=== PATIENT | female | born 1980 | race Caucasian/White ===

== ENCOUNTER → 2016-08-29 11:25 | Emergency (ER) | payer OTHER ==
[~2016-08-29 11:25] MED LIST: HYDROmorphone* 1 MG/ML 1 ML SYR IV ONE; HYDROmorphone* 1 MG/ML 1 ML SYR IV SLOW PU ONE; Iohexol 300* (CONTRAST) 10 ML SDV IV ONE; Metoclopramide IV* 5 MG/ML 2 ML VIAL IV ONE; diPHENhydraMINE IV* 50 MG/ML 1 ml VIAL (BENADRYL) IV ONE
[2016-08-29 13:26] LABS: Hematocrit 43 % (35-47); Hemoglobin 14.2 g/dl (12.0-16.0); Mean Corpuscular HGB Conc 33 g/dl (31-36); Mean Corpuscular Hemoglobin 29 pg (27-31); Mean Corpuscular Volume 86 fL (80-97); Mean Platelet Volume 8 um3 (7.4-10.4); Red Blood Count 4.97 10^6/ul (4.0-5.4); Red Cell Distribution Width 14 % (10.5-15); White Blood Count 6.4 10^3/ul (3.5-10.8)
[2016-08-29] MEDS: NS 0.9% 1000 ML* 3,000 ML IV ONE ×3 (13:26→16:15)
[2016-08-29 13:30] LABS: Urine Bilirubin Negative (Negative); Urine Glucose Negative (Negative); Urine Nitrite Negative (Negative)
[2016-08-29 13:46] LABS: ALT 25 U/L (7-52); Albumin 4.5 g/dL (3.2-5.2); Alkaline Phosphatase 68 U/L (34-104); Amylase 38 U/L (29-103); BUN/Creatinine Ratio 15.9 (8-20); Blood Urea Nitrogen 11 mg/dL (6-24); C Reactive Protein 6.45 mg/L (< 5.00); CO2 Carbon Dioxide 26 mmol/L (22-32); Calcium 9.6 mg/dL (8.6-10.3); Chloride 102 mmol/L (101-111); EGFR African American 123.1 (>60); EGFR Non-African American 95.7 (>60); Globulin 3.6 g/dL (2-4); Glucose 83 mg/dL (70-100); Lipase 14 U/L (11.0-82.0); Sodium 134 mmol/L (133-145); Total Protein 8.1 g/dL (6.4-8.9)
--- NOTE | 2016-08-29 15:57 | RAD ---
Indication: Right-sided abdominal pain. Contrast: Administered 149.9 ml of OMNIPAQUE 300 mgi/ml CT of the abdomen and pelvis was performed after oral and IV contrast administration. Coronal and sagittal reconstructed images were obtained. The lung bases demonstrate no pleural fluid, nodules or masses. Heart is of normal size without evidence of pericardial effusion. The patient apparently has bilateral breast implants and clinical correlation is suggested. The liver is normal in size. No focal lesions or intrahepatic ductal dilatation is noted. The gallbladder demonstrates no calcified gallstones. No pericholecystic fluid or wall thickening is identified. The spleen is normal in size. The pancreas demonstrates no mass or pancreatic duct dilatation. The common duct is not dilated. No adrenal lesions are noted. The kidneys demonstrate symmetric nephrograms without focal lesions. No retroperitoneal lymphadenopathy is noted. No dilated loops of bowel are noted. CT of the pelvis demonstrates fluid in the right colon. This is suggestive of colitis or gastroenteritis. Surgical clips are noted adjacent to the cecum which May BE due to prior appendectomy. No free fluid is identified. Intrauterine device is in place. No hernias are noted. IMPRESSION: FLUID IN THE RIGHT COLON SUGGESTIVE OF COLITIS OR GASTROENTERITIS. THE PATIENT STATUS POST APPENDECTOMY. IUD DEVICE IS IN PLACE. NO OTHER MASSES OR FLUID COLLECTIONS ARE NOTED.
[2016-08-29 17:24] VITALS: BP 133/80
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
== END | disposition home or self-care (01) ==
LOC: ED 11:25
DX: K52.9 Noninfective gastroenteritis and colitis, unspecified (principal); R10.84 Generalized abdominal pain; R11.2 Nausea with vomiting, unspecified; R19.7 Diarrhea, unspecified
CPT/HCPCS: 36415; 74177; 80053; 81003; 82150; 83605; 83690; 85025; 86140; 96374; 96375; 99283; J1170; J1200; Q9967

== ENCOUNTER 2017-05-14 16:16 | Emergency (ER) | payer OTHER ==
--- OUTSIDE RECORDS SUMMARY | 2017-05-14 17:10 | XMS REPORT ---
:1980 External Reference #:[id number] Author Organization [facility] Address [address] [place] [address] Phone [phone] Care Team Providers Name Role Phone Sonam Kaufman M.D. Primary Care Physician Unavailable Payers Type Date Identification Numbers Payment Provider Subscriber Health Maintenance Policy Number: [employer] Organization (HMO) [id number] PayID: [id number] [address] [place] [address] Problems Description No Information Family History Date Family Member(s) Problem(s) Comments General Hearing Loss General Heart Attack General Migraine General Thyroid Disease General Vertigo Father Hearing Loss Father Heart Attack Mother Migraine Mother Thyroid Disease Mother Vertigo Social History Type Date Description Comments Occupation [employer] Cigarette Use Former Occasional Smoker Quit 3 years ago. Cigars Never Smoked Cigars Pipe Never Smoked A Pipe Smokeless Tobacco Never Used Smokeless Tobacco ETOH Use Currently rarely consumes alcohol Smoking Patient is a former smoker Allergies, Adverse Reactions, Alerts Date Description Reaction Status Severity Comments 05/08/2017 NKDA active Medications Medication Date Status Form Strength Qnty SIG Indications Ordering Provider Azithromycin Active Tablets 250mg Kaufman, 000 Sonam Martines Venlafaxine HCL ER Active Caps ER 37.5mg Kaufman, 000 24HR Sonam Martines Venlafaxine HCL ER Active Caps ER 75mg Kaufman, 000 24HR Sonam Martines Zenzedi Active Tablets 20mg Dauria 000 N.P., Mandy Dextroamphetamine Active Caps ER 15mg Kaufman, Sulfate ER 000 24HR Sonam Martines SSD Active Cream 1% Kaufman, 000 Sonam M.D. Multiple Vitamins Active Tablets daily Unknown 000 Merana IUD Active Unknown 000 Vital Signs Date Vital Result Comment 05/08/2017 BP Systolic 139 mmHg BP Diastolic 92 mmHg Heart Rate 88 /min Respiratory Rate 18 /min Weight 245.00 lb Weight in kg's 111.132 Height 65 inches 5'5" Height in cm's 165.1 cm BMI (Body Mass Index) 40.8 kg/m2 Results Description No Information Procedures Date CPT Code Description Status 05/08/2017 25979 Tympanometry Completed 05/08/2017 18666 Comprehensive Audiogram Completed Encounters Type Date Location Provider CPT E/M Dx Office Visit 05/08/2017 [place],After 04/17/07 Stephan Antoine 53412 H83.3x3 2:30p Conrad Courtney H93.243 Plan of Care 05/08/2017 - Stephan Courtney M.D.H83.3x3 Noise effects on inner ear, bilateralComments:The patient presents today because the she has been noticing some hearing loss and tinnitus. 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 What I think is happening is the noise is leading to temporary threshold shifting. I explained what this is and how it works. The ear reflexes that protect the ears from noise aretriggered and this leads to her symptoms. Not hearing somebody when they are behind you is a normalphenomenon. You can't localize this and it is exacerbated by the arora noise.My recommendation is to wear ear plugs or get musician plugs made if needed. We reviewed all of this.H93.243 Temporary auditory threshold shift, bilateral
[2017-05-14] MEDS ORDERED: Ondansetron ODT TAB* 4 MG PO ONE (17:25)
[2017-05-14] MEDS ORDERED: oxyCODONE/Acetamin 5/325 MG* TAB PO ONE (17:25)
[2017-05-14] MEDS ORDERED: Clindamycin CAP* 150 MG PO ONE (17:26)
[2017-05-14 17:59] LABS: ABS Basophils 0 10^3/ul (0-0.2); ABS Eosinophils 0.1 10^3/ul (0-0.6); ABS Lymphocytes 0.5 10^3/ul (1.0-4.8); ABS Monocytes 0.2 10^3/ul (0-0.8); ABS Neutrophils 4.4 10^3/ul (1.5-7.7); ABS Nucleated RBC 0 10^3/ul; Hematocrit 39 % (35-47); Hemoglobin 13.3 g/dl (12.0-16.0); Lymphocyte % 9.7 % (25-47); Mean Corpuscular HGB Conc 34 g/dl (31-36); Mean Corpuscular Hemoglobin 30 pg (27-31); Mean Corpuscular Volume 88 fL (80-97); Mean Platelet Volume 8 um3 (7.4-10.4); Nucleated Red Blood Cells % 0; Platelet Count 210 10^3/ul (150-450); Red Blood Count 4.48 10^6/ul (4.0-5.4); Red Cell Distribution Width 14 % (10.5-15); White Blood Count 5.3 10^3/ul (3.5-10.8)
[2017-05-14 18:12] LABS: EGFR Non-African American 118.7 (>60)
[2017-05-14 19:50] VITALS: BP 149/88
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
== END 2017-05-14 19:10 | disposition home or self-care (01) ==
LOC: ED 16:16
DX: K08.89 Other specified disorders of teeth and supporting structures (principal); K02.9 Dental caries, unspecified; K52.9 Noninfective gastroenteritis and colitis, unspecified; F41.9 Anxiety disorder, unspecified; Z87.891 Personal history of nicotine dependence
CPT/HCPCS: 36415; 80053; 85025; 86140; 99281; A9270-GY

== ENCOUNTER 2017-05-15 08:35 | Emergency (ER) | payer OTHER ==
[2017-05-15] MEDS ORDERED: NS 0.9% 1000 ML* 1,000 ML IV ONE (09:16)
[2017-05-15] MEDS ORDERED: diPHENhydraMINE IV* 50 MG/ML 1 ml VIAL (BENADRYL) IV ONE (09:16)
[2017-05-15] MEDS ORDERED: Ketorolac INJ* 30 MG/ML 1 ML VIAL IV PUSH ONE (09:17)
[2017-05-15] MEDS ORDERED: Metoclopramide IV* 5 MG/ML 2 ML VIAL IV ONE (09:17)
--- NOTE | 2017-05-15 09:25 | UC ---
UC General HPI - HPI Summary HPI Summary: Patient presents with a past medical history of colitis, migraines, and a recent dental pain, pending root canal, and was RX Amoxicillin from her dentist prior to dental treatment. She states the antibiotic caused vomiting, and she had to stop taking it. She states the vomiting became severe and it triggered a migraine so last night she went to the ER last night. She states she continues now to dry heave, and she complains of migraine headache, which she affirms is consistent with her previous headaches. She has not been able to take anything for the headache due to the vomiting. She denies blurred vision, double vision, weakness, or numbness. She states she is dizzy but states she believes that is because of dehydration, and states this is not an unusual headache, and it did not start in a sudden thunderclap manner, and is not worse headache of her life. - History of Current Complaint Chief Complaint: UCAbdominalPain Stated Complaint: HEADACHE, VOMITING,DIZZY Time Seen by Provider: 05/15/17 09:06 Hx Obtained From: Patient Hx Last Menstrual Period: IUD Onset/Duration: Gradual Onset, Lasting Days Timing: Constant Onset Severity: Mild Current Severity: Severe Pain Intensity: 10 Associated Signs & Symptoms: Positive: Dizziness, Headache, Nausea, Vomiting Similar Episode/Dx as: migraine headache - Allergy/Home Medications Allergies/Adverse Reactions: Allergies Allergy/AdvReac Type Severity Reaction Status Date / Time No Known Allergies Allergy Verified 05/15/17 08:53 PMH/Surg Hx/FS Hx/Imm Hx Previously Healthy: Yes Respiratory History: Asthma - Surgical History Surgical History: Yes Surgery Procedure, Year, and Place: Breast augmentation x2 and liposuction 2009 , APPENDECTOMY 1 WEEK PRIOR, endoscopic carpal tunnel surgery - 2007 - Family History Known Family History: Negative: Cardiac Disease, Hypertension, Diabetes - Social History Occupation: Employed Full-time Lives: Alone Alcohol Use: Rare Substance Use Type: None Smoking Status (MU): Former Smoker Have You Smoked in the Last Year: No - Immunization History Most Recent Influenza Vaccination: 2013 Most Recent Tetanus Shot: 07/31/14 Most Recent Pneumonia Vaccination: never Review of Systems Constitutional: Fatigue Skin: Negative Eyes: Negative ENT: Negative Respiratory: Negative Cardiovascular: Negative Gastrointestinal: Vomiting, Nausea Genitourinary: Negative Motor: Negative Neurovascular: Negative Musculoskeletal: Negative Neurological: Headache Psychological: Negative Is Patient Immunocompromised?: No All Other Systems Reviewed And Are Negative: Yes Physical Exam Triage Information Reviewed: Yes Appearance: Pain Distress Vital Signs: Initial Vital Signs Temp 99.4 F 05/15/17 08:40 Pulse 85 05/15/17 08:40 Resp 14 05/15/17 08:40 BP 137/87 05/15/17 08:40 Pulse Ox 99 05/15/17 08:40 Vital Signs Reviewed: Yes Eye Exam: Normal ENT Exam: Normal Neck exam: Normal Neck: Positive: 1 Respiratory Exam: Normal Cardiovascular Exam: Normal Abdominal Exam: Normal Musculoskeletal Exam: Normal Neurological Exam: Normal Psychological Exam: Normal Skin Exam: Normal Course/Dx - Course Course Of Treatment: Patient presents with her typical migraine headache triggered by vomiting and secondary dehydration. She received iv fluids of one liter normal saline, zofranfor nausea, and her headache improved singnificantly. Following the administration of the medications she tolerated oral fluids. She has arrangements with the dentist and was discharged home in stable condition. - Differential Dx - Multi-Symptom Differential Diagnoses: Other - headache Provider Diagnoses: headache. nausea. vomiting Discharge - Discharge Plan Condition: Stable Disposition: HOME Prescriptions: Ondansetron TAB* [Zofran 4 MG Tab*] 4 mg PO Q6H PRN #14 tab MDD 4 PRN Reason: Nausea Patient Education Materials: Hyperemesis Gravidarum (ED), Dehydration (ED), Acute Headache (DC), Acute Nausea and Vomiting (ED) Referrals: Sonam Kaufman MD [Primary Care Provider] -
[2017-05-15 12:55] VITALS: BP 126/77
== END 2017-05-15 12:15 | disposition home or self-care (01) ==
LOC: UCEAST 08:35
DX: R51 Headache (principal); R11.2 Nausea with vomiting, unspecified; R53.83 Other fatigue; J45.909 Unspecified asthma, uncomplicated; Z87.891 Personal history of nicotine dependence
CPT/HCPCS: 96361; 96374; 96375; 99212; G0463; J1200; J1885; J2765

== ENCOUNTER 2017-08-02 09:55 | Emergency (ER) | payer OTHER ==
[2017-08-02] MEDS ORDERED: NS 0.9% 1000 ML* 1,000 ML IV ONE (10:34)
[2017-08-02] MEDS ORDERED: PROCHLORPERAZINE INJ 5 MG/ML 2 ML VIAL IV PRN (10:34)
[2017-08-02] MEDS ORDERED: Pantoprazole IV* 40 MG IV ONE (10:34)
[2017-08-02 11:14] LABS: ABS Basophils 0 10^3/ul (0-0.2); ABS Eosinophils 0 10^3/ul (0-0.6); ABS Lymphocytes 0.4 10^3/ul (1.0-4.8); ABS Monocytes 0.2 10^3/ul (0-0.8); ABS Neutrophils 3.2 10^3/ul (1.5-7.7); ABS Nucleated RBC 0 10^3/ul; Eosinophil % 0.4 % (0-6); Hematocrit 40 % (35-47); Hemoglobin 13.6 g/dl (12.0-16.0); Lymphocyte % 10.2 % (25-47); Mean Corpuscular HGB Conc 34 g/dl (31-36); Mean Corpuscular Hemoglobin 30 pg (27-31); Mean Corpuscular Volume 87 fL (80-97); Mean Platelet Volume 7.5 um3 (7.4-10.4); Nucleated Red Blood Cells % 0; Platelet Count 189 10^3/ul (150-450); Red Cell Distribution Width 14 % (10.5-15); White Blood Count 3.8 10^3/ul (3.5-10.8)
[2017-08-02] MEDS ORDERED: HYDROmorphone INJ* 1 MG/ML CARPUJECT SYRINGE IV ONE (11:17)
[2017-08-02] MEDS ORDERED: PROCHLORPERAZINE INJ 5 MG/ML 2 ML VIAL ONE (11:23)
[2017-08-02 11:33] LABS: EGFR Non-African American 93.6 (>60)
[2017-08-02] MEDS ORDERED: HYDROmorphone INJ* 2 MG/ML CARPUJECT SYRINGE IV ONE (12:00)
[2017-08-02 13:52] VITALS: BP 139/85
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
== END 2017-08-02 13:50 | disposition home or self-care (01) ==
LOC: ED 09:55
DX: A09 Infectious gastroenteritis and colitis, unspecified (principal); Z87.891 Personal history of nicotine dependence; I10 Essential (primary) hypertension; K58.9 Irritable bowel syndrome, unspecified
CPT/HCPCS: 36415; 80053; 82272; 83605; 83630; 83690; 84702; 85025; 86140; 87045; 87046; 87077; 87493; 87899; 96360; 96374; 96375; 96376; 99283; J0780